=== PATIENT | male | born 1955 | race African-American/Black ===

== ENCOUNTER 2021-06-08 14:38 | Emergency (ER) | payer MEDICARE, OTHER ==
[2021-06-08 15:15] LABS: #Basophils 0.1 thou/uL (0.0-0.2); #Eosinphils 0.2 thou/uL (0.0-0.7); #Monocytes 0.6 thou/uL (0.11-0.59); #Neutrophils 1.8 thou/uL (1.40-6.50); %Basophils 1.3 % (0.0-1.0); %Eosinophils 3.4 % (0.0-10.0); %Lymphocytes 43.6 % (21.0-51.0); %Monocytes 12.1 % (0.0-10.0); %Neutrophils 39.6 % (42.0-75.0); Hemoglobin 16.7 g/dL (14.0-18.0); Mean Corpuscular HGB CONC 36.2 g/dL (32.0-36.0); Mean Corpuscular Hemoglobin 31.8 pg (27.0-31.0); Mean Corpuscular Volume 87.7 fL (78.0-98.0); Mean Platelet Volume 5.6 fL (7.4-10.4); Platelet Count 310 thou/uL (130-400); Red Blood Cell (RBC) Count 5.26 mill/uL (4.70-6.10); White Blood Cell (WBC) Count 4.6 thou/uL (4.8-10.8)
[2021-06-08 15:51] LABS: Acetaminophen Less than 6.0 mcg/mL (10.0-30.0); Alcohol 12 mg/dL (Less than 10); Salicylate Less than 8.0 mg/dL (15.0-30.0)
[2021-06-08 15:52] LABS: ALT (SGPT) 13 U/L (8-55); AST (SGOT) 17 U/L (5-34); Albumin 3.7 g/dL (3.4-4.8); Alkaline Phosphatase 66 U/L (40-110); Anion Gap 14 mmol/L (10-20); BUN (Urea Nitrogen) 14 mg/dL (8.4-25.7); Bilirubin, Total 0.4 mg/dL (0.2-1.2); Calc. Creatinine Clearance 0 mL/min (70-130); Calcium 8.6 mg/dL (7.8-10.44); Carbon Dioxide 20 mmol/L (23-31); Chloride 107 mmol/L (98-107); Globulin 3.3 g/dL (2.4-3.5); Glucose 116 mg/dL (80-115); Potassium 4.2 mmol/L (3.5-5.1); Sodium 137 mmol/L (136-145)
== END 2021-06-08 17:03 | disposition home or self-care (01) ==
LOC: ERS 14:38
DX: Z00.00 Encounter for general adult medical examination without abnormal findings (principal); I10 Essential (primary) hypertension; E78.5 Hyperlipidemia, unspecified; E78.00 Pure hypercholesterolemia, unspecified; M10.9 Gout, unspecified; F17.210 Nicotine dependence, cigarettes, uncomplicated; Z79.899 Other long term (current) drug therapy
CPT/HCPCS: 36415; 70450; 71045; 80053; 80307; 84484; 85025; 93005

== ENCOUNTER 2021-10-07 13:27 | Emergency (ER) | payer MEDICARE, OTHER ==
[2021-10-07 15:02] LABS: #Eosinphils 0.1 thou/uL (0.0-0.7); #Lymphocytes 1.6 thou/uL (1.20-3.40); #Monocytes 0.4 thou/uL (0.11-0.59); #Neutrophils 2.2 thou/uL (1.40-6.50); %Basophils 0.4 % (0.0-1.0); %Eosinophils 2.8 % (0.0-10.0); %Lymphocytes 35.6 % (21.0-51.0); %Monocytes 10.2 % (0.0-10.0); Hemoglobin 17.5 g/dL (14.0-18.0); Mean Corpuscular HGB CONC 34.8 g/dL (32.0-36.0); Mean Corpuscular Hemoglobin 30.8 pg (27.0-31.0); Mean Corpuscular Volume 88.5 fL (78.0-98.0); Mean Platelet Volume 6.3 fL (7.4-10.4); Platelet Count 325 thou/uL (130-400); RBC Distribution Width 12.8 % (11.5-14.5); Red Blood Cell (RBC) Count 5.69 mill/uL (4.70-6.10); White Blood Cell (WBC) Count 4.4 thou/uL (4.8-10.8)
[2021-10-07 15:17] LABS: Acetaminophen Less than 10.0 mcg/mL (10.0-30.0); Alcohol Less than 10 mg/dL (Less than 10); Salicylate Less than 8.0 mg/dL (15.0-30.0)
[2021-10-07 15:24] LABS: ALT (SGPT) 14 U/L (8-55); AST (SGOT) 22 U/L (5-34); Albumin 4.1 g/dL (3.4-4.8); Alkaline Phosphatase 85 U/L (40-110); Anion Gap 12 mmol/L (10-20); BUN (Urea Nitrogen) 13 mg/dL (8.4-25.7); Bilirubin, Total 0.6 mg/dL (0.2-1.2); Calc. Creatinine Clearance 0 mL/min (70-130); Calcium 9.1 mg/dL (7.8-10.44); Carbon Dioxide 23 mmol/L (23-31); Chloride 107 mmol/L (98-107); Globulin 3.7 g/dL (2.4-3.5); Glucose 148 mg/dL (80-115); Magnesium 2.4 mg/dL (1.6-2.6); Protein, Total 7.8 g/dL (5.8-8.1); Sodium 138 mmol/L (136-145)
[2021-10-07] MEDS ORDERED: Calcium Chloride 1 GM/10 ML Abboject SYRINGE ONE (16:35)
[2021-10-07] MEDS ORDERED: Atropine Sulfate 1 mg/10 ml Syringe ONE (16:35)
[2021-10-07] MEDS ORDERED: Lidocaine 1% PF 10 ML AMP ONE (17:56)
[2021-10-07] MEDS ORDERED: Midazolam HCl 2 mg/2 ml Vial ONE (17:57)
[2021-10-07 18:09] LABS: Lactic Acid 3.4 mmol/L (0.5-2.2)
== END 2021-10-07 19:15 | disposition short-term general hospital (02) ==
LOC: ERS 13:27
DX: T44.7X2A Poisoning by beta-adrenoreceptor antagonists, intentional self-harm, initial encounter (principal); T42.8X2A Poisoning by antiparkinsonism drugs and other central muscle-tone depressants, intentional self-harm, initial encounter; R41.82 Altered mental status, unspecified; I10 Essential (primary) hypertension; E78.5 Hyperlipidemia, unspecified; E78.00 Pure hypercholesterolemia, unspecified; M10.9 Gout, unspecified; F17.210 Nicotine dependence, cigarettes, uncomplicated; Z79.899 Other long term (current) drug therapy
CPT/HCPCS: 36415; 71045; 80053; 80307; 83605; 83735; 84443; 84484; 85025; 93005; J0461; J2001; J2250

== ENCOUNTER 2023-05-10 21:02 | Inpatient (IN) | payer OTHER ==
[~2023-05-10 21:02] MED LIST: Iopamidol 370 76% 100 ML VIAL ONE
[2023-05-10] MEDS ORDERED: LORazepam 2 MG/ML SYR.(CARPUJECT) ONE (21:12)
[2023-05-10] MEDS ORDERED: Morphine 4 MG/ML VIAL ONE ×2 (21:12→21:34)
[2023-05-10] MEDS ORDERED: Ondansetron PF 4 MG/2 ML Vial ONE (21:12)
[2023-05-10] MEDS ORDERED: Nitroglycerin 50 MG/250 ML BOT ONE (21:27)
[2023-05-10] MEDS ORDERED: Heparin 25,000 UNITS/D5W 500 ml bag ONE (21:27)
[2023-05-10] MEDS ORDERED: Heparin 10,000 UNITS/ 10 ML VIAL ONE ×2 (21:27→21:44)
[2023-05-10 21:32] LABS: #Basophils 0.1 thou/uL (0.0-0.2); #Eosinphils 0.1 thou/uL (0.0-0.7); #Neutrophils 2.6 thou/uL (1.40-6.50); %Basophils 0.8 % (0.0-1.0); %Eosinophils 1.1 % (0.0-10.0); %Lymphocytes 47.8 % (21.0-51.0); %Monocytes 13.1 % (0.0-10.0); %Neutrophils 36.5 % (42.0-75.0); Hematocrit 48.4 % (42.0-52.0); Hemoglobin 17.5 g/dL (14.0-18.0); Mean Corpuscular HGB CONC 36.2 g/dL (32.0-36.0); Mean Corpuscular Hemoglobin 30.6 pg (27.0-31.0); Mean Corpuscular Volume 84.6 fl (78.0-98.0); Mean Platelet Volume 8.1 fL (7.4-10.4); Platelet Count 267 10x3/uL (130-400); Red Blood Cell (RBC) Count 5.72 mill/uL (4.70-6.10); White Blood Cell (WBC) Count 7.2 10x3/uL (4.8-10.8)
[2023-05-10] MEDS ORDERED: Nitroglycerin 50 MG/250 ML BOT 0 ML ONE (21:44)
[2023-05-10] MEDS ORDERED: Lidocaine 1% (PF) 30 ML VIAL ONE (21:47)
[2023-05-10 21:52] LABS: Prothrombin Time 13.4 sec (12.0-14.7)
[2023-05-10 21:59] LABS: ALT (SGPT) 14 U/L (8-55); AST (SGOT) 19 U/L (5-34); Alkaline Phosphatase 70 U/L (40-110); Anion Gap 15 mmol/L (10-20); BUN (Urea Nitrogen) 7 mg/dL (8.4-25.7); Bilirubin, Total 0.5 mg/dL (0.2-1.2); Calc. Creatinine Clearance 0 mL/min (70-130); Calcium 9.1 mg/dL (7.8-10.44); Carbon Dioxide 23 mmol/L (23-31); Chloride 103 mmol/L (98-107); Estimated GFR 77; Globulin 3.2 g/dL (2.4-3.5); Glucose 138 mg/dL (80-115); Potassium 3.9 mmol/L (3.5-5.1); Protein, Total 7.2 g/dL (5.8-8.1); Sodium 137 mmol/L (136-145)
[2023-05-10 22:01] LABS: Acetaminophen Less than 10 mcg/mL (10.0-30.0); Alcohol Less than 10.0 mg/dL (Less than 10); Lipase 56 U/L (8-78); Magnesium 2.1 mg/dL (1.6-2.6); Salicylate Less than 8.0 mg/dL (15.0-30.0)
[2023-05-10] MEDS ORDERED: fentaNYL 50 mcg/mL 1 mL Vial ONE (22:18)
[2023-05-10] MEDS ORDERED: Midazolam HCl 2 mg/2 ml Vial ONE ×2 (22:18→22:34)
[2023-05-10] MEDS ORDERED: Milk Of Magnesia 30 ML UDCUP PO PRN (22:55)
[2023-05-10] MEDS ORDERED: Sodium Chloride 0.9% 1,000 ML IV SCH (23:00)
[2023-05-10] MEDS ORDERED: Morphine 2 MG/ML VIAL SLOW IVP SCH (23:45)
[2023-05-10] MEDS: Acetaminophen/Codeine 30-300mg Tablet PO PRN (23:54)
[2023-05-10] MEDS ORDERED: Electrolyte Replacement Protocol 1 EACH FS SCH (23:55)
[2023-05-10 23:58] VITALS: BMI 32.5
[2023-05-11 00:34] LABS: Troponin I 3.603 ng/mL (< 0.028)
[2023-05-11] MEDS: Nicotine 14 MG PATCH TD SCH (00:38)
[2023-05-11 03:10] LABS: Amphetamine Not Detected (NotDetected); Barbiturates Screen Not Detected (NotDetected); Benzodiazepine Screen Detected (NotDetected); Cocaine Metabolite Screen Not Detected (NotDetected); Methadone Not Detected (NotDetected); Methamphetamine Not Detected (NotDetected); Opiate Screen Detected (NotDetected); Oxycodone Screen Not Detected (NotDetected); Phencyclidine (PCP) Not Detected (NotDetected); THC/Cannabinoid Screen Detected (NotDetected); Tricyclic Screen Not Detected (NotDetected)
[2023-05-11] MEDS: Acetaminophen/Codeine 30-300mg Tablet PO PRN ×2 (04:23→09:03)
[2023-05-11] MEDS: Mag-Al 1200 mg/1200 mg/30 ML UDCUP PO PRN ×2 (04:24→08:20)
[2023-05-11 05:11] LABS: #Basophils 0.1 thou/uL (0.0-0.2); #Neutrophils 4.3 thou/uL (1.40-6.50); %Basophils 0.7 % (0.0-1.0); %Eosinophils 0.4 % (0.0-10.0); %Lymphocytes 27.8 % (21.0-51.0); %Monocytes 13.5 % (0.0-10.0); %Neutrophils 57.1 % (42.0-75.0); Hematocrit 46.8 % (42.0-52.0); Hemoglobin 16.8 g/dL (14.0-18.0); Mean Corpuscular HGB CONC 35.9 g/dL (32.0-36.0); Mean Corpuscular Hemoglobin 30.5 pg (27.0-31.0); Mean Corpuscular Volume 84.9 fl (78.0-98.0); Mean Platelet Volume 7.9 fL (7.4-10.4); Platelet Count 241 10x3/uL (130-400); RBC Distribution Width 13.9 % (11.5-14.5); Red Blood Cell (RBC) Count 5.51 mill/uL (4.70-6.10); White Blood Cell (WBC) Count 7.6 10x3/uL (4.8-10.8)
[2023-05-11 05:25] LABS: Hemoglobin A1c 6.6 % (4.0-6.0)
[2023-05-11 05:38] LABS: ALT (SGPT) 42 U/L (8-55); AST (SGOT) 333 U/L (5-34); Albumin 3.3 g/dL (3.4-4.8); Alkaline Phosphatase 70 U/L (40-110); Anion Gap 13 mmol/L (10-20); BUN (Urea Nitrogen) 7 mg/dL (8.4-25.7); Bilirubin, Total 0.7 mg/dL (0.2-1.2); Calc. Creatinine Clearance 132 mL/min (70-130); Calcium 8.2 mg/dL (7.8-10.44); Carbon Dioxide 22 mmol/L (23-31); Cardiac Risk 3.3 (Less than 4.5); Chloride 107 mmol/L (98-107); Cholesterol 161 mg/dl (< 200 Desired); Estimated GFR 95; Globulin 3.3 g/dL (2.4-3.5); Glucose 138 mg/dL (80-115); HDL Cholesterol 49 mg/dL (>60 Neg Risk); LDL Cholesterol, Calculated 63 mg/dL; Magnesium 1.8 mg/dL (1.6-2.6); Potassium 4.5 mmol/L (3.5-5.1); Protein, Total 6.6 g/dL (5.8-8.1); Sodium 137 mmol/L (136-145); Triglycerides 246 mg/dL (Less than 150)
[2023-05-11] MEDS ORDERED: Magnesium 2 GM/50 ML(in water) 2 GM in Premix 1 BAG IVPB SCH (08:00)
[2023-05-11] MEDS: Folic Acid 1 MG TAB PO SCH (09:57)
[2023-05-11] MEDS: Multivit, Therapeutic 1 TAB PO SCH (09:57)
[2023-05-11] MEDS: Aspirin Chewable 81 MG TAB PO SCH (09:57)
[2023-05-11] MEDS: Thiamine 100 MG TAB PO SCH (09:57)
[2023-05-11] MEDS: Clopidogrel Bisulfate 75 MG TAB PO SCH (09:58)
[2023-05-11] MEDS ORDERED: Lidocaine 1% (PF) 30 ML VIAL ONE (12:10)
[2023-05-11] MEDS ORDERED: Adenosine 6 MG/2 ML VIAL ONE (12:10)
[2023-05-11] MEDS ORDERED: Nitroglycerin 50 MG/250 ML BOT 0 ML ONE (12:10)
[2023-05-11] MEDS ORDERED: Heparin 10,000 UNITS/ 10 ML VIAL ONE (12:10)
[2023-05-11] MEDS ORDERED: Verapamil 5 MG/2 ML VIAL ONE (12:10)
[2023-05-11] MEDS ORDERED: Propofol 1,000 MG/100 ML VIAL IV ONE (12:49)
[2023-05-11] MEDS ORDERED: Furosemide 40 MG/4 ML VIAL ONE (12:51)
[2023-05-11] MEDS ORDERED: Labetalol HCl 100 MG/20 ML VIAL ONE (12:57)
[2023-05-11] MEDS ORDERED: Succinylcholine 200 MG/10 ml SYRINGE FS ONE (12:57)
[2023-05-11] MEDS ORDERED: Rocuronium Bromide 10 MG/ML (10ML VIAL) ONE (12:57)
[2023-05-11] MEDS ORDERED: Albuterol HFA (OR) 200 PUFF INH ONE ×2 (12:57→13:03)
[2023-05-11] MEDS ORDERED: Nitroglycerin 50 MG/250 ML BOT 250 ML ONE (13:15)
[2023-05-11] MEDS ORDERED: fentaNYL PF 100 MCG/2 ML SYRINGE ONE (13:32)
[2023-05-11] MEDS ORDERED: Morphine 4 MG/ML VIAL ONE (13:33)
[2023-05-11] MEDS ORDERED: Ventilator Sedation Protocol FS PRN (14:15)
[2023-05-11] MEDS ORDERED: Lorazepam 2 MG/ML VIAL ONE (14:18)
[2023-05-11] MEDS: Lorazepam 2 MG/ML VIAL SLOW IVP PRN ×3 (14:20→19:40)
[2023-05-11 14:22] LABS: Actual Bicarbonate (HCO3a) 19.2 mEq/L (22-28); Base Excess (BEa) -6.9 mEq/L (-2.0 to +3.0); CO2 Tension 40.5 mmHg (35.0-45.0); Calcium, Ionized (arterial) 1.12 mmol/L (1.12-1.30); Carboxyhemoglobin (COHb) 1.6 gm% (0.0-3.0); Hematocrit-ABG 58 % (42.0-52.0); Hemoglobin (Hb) 19.6 g/dL (14.0-18.0); Potassium - ABG Lab 5.36 mmol/L (3.70-5.30); pH, Arterial 7.293 (7.35-7.45)
[2023-05-11 14:24] LABS: Puncture Site Arterial Line
[2023-05-11] MEDS ORDERED: DISCONTINUE PREVIOUS NARCOTIC PAIN MEDICATIONS AND BENZODIAZEPINES FS SCH (14:30)
[2023-05-11] MEDS ORDERED: Fentanyl BOLUS 250 ML IVPB PRN (14:30)
[2023-05-11] MEDS ORDERED: niCARdipine 50 MG, Admixture Fee 1 EACH in Sodium Chloride 0.9% 250 ML 230 ML IV SCH (14:30)
[2023-05-11] MEDS ORDERED: niCARdipine 40MG In NaCl 40 MG/200 ML BAG IVPB SCH (14:30)
[2023-05-11] MEDS ORDERED: Propofol BOLUS 1,000 MG/100 ML VIAL IV PRN (14:30)
[2023-05-11] MEDS ORDERED: Fentanyl CADD 100 ML IV SCH (14:30)
[2023-05-11] MEDS ORDERED: Furosemide 40 MG/4 ML VIAL SLOW IVP SCH (14:30)
[2023-05-11] MEDS: Propofol 1,000 MG/100 ML VIAL IV PRN (18:27)
[2023-05-11] MEDS: Acetaminophen 650 MG/20.3 ML UDCUP PO PRN (22:11)
[2023-05-12] MEDS: Propofol 1,000 MG/100 ML VIAL IV PRN ×2 (01:03→06:32)
[2023-05-12] MEDS: Nicotine 14 MG PATCH TD SCH (01:04)
[2023-05-12] MEDS: Lorazepam 2 MG/ML VIAL SLOW IVP PRN (01:08)
[2023-05-12] MEDS: Morphine 2 MG/ML VIAL SLOW IVP PRN ×2 (03:25→05:09)
[2023-05-12] MEDS: Aspirin Chewable 81 MG TAB PO SCH (08:29)
[2023-05-12] MEDS: Carvedilol 3.125 MG TAB PO SCH ×3 (08:30→21:09)
[2023-05-12] MEDS: Clopidogrel Bisulfate 75 MG TAB PO SCH (08:30)
[2023-05-12] MEDS: Thiamine 100 MG TAB PO SCH (08:30)
[2023-05-12] MEDS: Multivit, Therapeutic 1 TAB PO SCH (08:30)
[2023-05-12] MEDS: Folic Acid 1 MG TAB PO SCH (08:30)
[2023-05-12 09:30] LABS: #Basophils 0.1 thou/uL (0.0-0.2); #Monocytes 1.2 thou/uL (0.11-0.59); #Neutrophils 6.8 thou/uL (1.40-6.50); %Basophils 0.5 % (0.0-1.0); %Eosinophils 0.3 % (0.0-10.0); %Lymphocytes 15.9 % (21.0-51.0); %Monocytes 12.7 % (0.0-10.0); %Neutrophils 70.3 % (42.0-75.0); Hematocrit 48.2 % (42.0-52.0); Hemoglobin 16.7 g/dL (14.0-18.0); Mean Corpuscular HGB CONC 34.6 g/dL (32.0-36.0); Mean Corpuscular Hemoglobin 30.6 pg (27.0-31.0); Mean Corpuscular Volume 88.4 fl (78.0-98.0); Mean Platelet Volume 8.2 fL (7.4-10.4); Platelet Count 199 10x3/uL (130-400); RBC Distribution Width 14.7 % (11.5-14.5); Red Blood Cell (RBC) Count 5.45 mill/uL (4.70-6.10); White Blood Cell (WBC) Count 9.7 10x3/uL (4.8-10.8)
[2023-05-12 09:54] LABS: Anion Gap 13 mmol/L (10-20); BUN (Urea Nitrogen) 8 mg/dL (8.4-25.7); Calc. Creatinine Clearance 118 mL/min (70-130); Calcium 8.2 mg/dL (7.8-10.44); Carbon Dioxide 24 mmol/L (23-31); Chloride 105 mmol/L (98-107); Estimated GFR 89; Glucose 124 mg/dL (80-115); Magnesium 2.2 mg/dL (1.6-2.6); Sodium 138 mmol/L (136-145)
[2023-05-12] MEDS: Dexmedetomidine 400 MCG, Admixture Fee 1 EACH in Sodium Chloride 0.9% 96 ML IVPB SCH ×2 (10:18→21:15)
[2023-05-13] MEDS: Nicotine 14 MG PATCH TD SCH (00:35)
[2023-05-13 04:08] LABS: #Eosinphils 0.1 thou/uL (0.0-0.7); #Neutrophils 5.8 thou/uL (1.40-6.50); %Basophils 0.5 % (0.0-1.0); %Eosinophils 0.9 % (0.0-10.0); %Lymphocytes 20.5 % (21.0-51.0); %Monocytes 11.4 % (0.0-10.0); %Neutrophils 66.2 % (42.0-75.0); Hematocrit 44.9 % (42.0-52.0); Hemoglobin 15.8 g/dL (14.0-18.0); Mean Corpuscular HGB CONC 35.2 g/dL (32.0-36.0); Mean Corpuscular Hemoglobin 30.4 pg (27.0-31.0); Mean Corpuscular Volume 86.5 fl (78.0-98.0); Mean Platelet Volume 8.3 fL (7.4-10.4); Platelet Count 205 10x3/uL (130-400); RBC Distribution Width 14.3 % (11.5-14.5); Red Blood Cell (RBC) Count 5.19 mill/uL (4.70-6.10); White Blood Cell (WBC) Count 8.7 10x3/uL (4.8-10.8)
[2023-05-13 04:28] LABS: Anion Gap 13 mmol/L (10-20); BUN (Urea Nitrogen) 12 mg/dL (8.4-25.7); Calc. Creatinine Clearance 123 mL/min (70-130); Calcium 8.4 mg/dL (7.8-10.44); Carbon Dioxide 21 mmol/L (23-31); Chloride 106 mmol/L (98-107); Estimated GFR 94; Glucose 121 mg/dL (80-115); Potassium 4.2 mmol/L (3.5-5.1); Sodium 136 mmol/L (136-145)
[2023-05-13] MEDS: Folic Acid 1 MG TAB PO SCH (07:46)
[2023-05-13] MEDS: Clopidogrel Bisulfate 75 MG TAB PO SCH (07:46)
[2023-05-13] MEDS: Aspirin Chewable 81 MG TAB PO SCH (07:46)
[2023-05-13] MEDS: Carvedilol 3.125 MG TAB PO SCH ×2 (07:46→20:32)
[2023-05-13] MEDS: Multivit, Therapeutic 1 TAB PO SCH (07:46)
[2023-05-13] MEDS: Thiamine 100 MG TAB PO SCH (07:46)
[2023-05-13] MEDS: Acetaminophen 650 MG/20.3 ML UDCUP PO PRN ×2 (13:46→20:33)
[2023-05-14] MEDS: Acetaminophen 650 MG/20.3 ML UDCUP PO PRN (02:21)
[2023-05-14] MEDS: Nicotine 14 MG PATCH TD SCH (02:21)
[2023-05-14 04:52] LABS: #Eosinphils 0.1 thou/uL (0.0-0.7); #Neutrophils 5.7 thou/uL (1.40-6.50); %Basophils 0.4 % (0.0-1.0); %Eosinophils 0.9 % (0.0-10.0); %Lymphocytes 19.5 % (21.0-51.0); %Monocytes 11.9 % (0.0-10.0); %Neutrophils 66.8 % (42.0-75.0); Hematocrit 44.8 % (42.0-52.0); Hemoglobin 15.9 g/dL (14.0-18.0); Mean Corpuscular HGB CONC 35.5 g/dL (32.0-36.0); Mean Corpuscular Hemoglobin 30.2 pg (27.0-31.0); Mean Platelet Volume 8.7 fL (7.4-10.4); Platelet Count 224 10x3/uL (130-400); RBC Distribution Width 13.8 % (11.5-14.5); Red Blood Cell (RBC) Count 5.27 mill/uL (4.70-6.10); White Blood Cell (WBC) Count 8.5 10x3/uL (4.8-10.8)
[2023-05-14 05:13] LABS: Anion Gap 14 mmol/L (10-20); BUN (Urea Nitrogen) 13 mg/dL (8.4-25.7); Calc. Creatinine Clearance 106 mL/min (70-130); Calcium 8.6 mg/dL (7.8-10.44); Carbon Dioxide 21 mmol/L (23-31); Chloride 108 mmol/L (98-107); Estimated GFR 78; Glucose 133 mg/dL (80-115); Potassium 3.6 mmol/L (3.5-5.1); Sodium 139 mmol/L (136-145)
[2023-05-14] MEDS: Folic Acid 1 MG TAB PO SCH (09:11)
[2023-05-14] MEDS: Thiamine 100 MG TAB PO SCH (09:11)
[2023-05-14] MEDS: Aspirin Chewable 81 MG TAB PO SCH (09:11)
[2023-05-14] MEDS: Multivit, Therapeutic 1 TAB PO SCH (09:11)
[2023-05-14] MEDS: Clopidogrel Bisulfate 75 MG TAB PO SCH (09:12)
[2023-05-14] MEDS: Carvedilol 3.125 MG TAB PO SCH (09:14)
[2023-05-14 11:44] VITALS: TEMP 98.6
[2023-05-14 13:03] VITALS: BP 126/74
[2023-05-14] MEDS ORDERED: Atorvastatin Calcium 20 MG TAB PO SCH (21:00)
[2023-05-15] MEDS ORDERED: DULoxetine 60 MG CAP PO SCH (09:00)
[2023-05-15] MEDS ORDERED: Furosemide 20 MG TAB PO SCH (09:00)
== END 2023-05-14 15:30 | disposition home or self-care (01) | DRG 280 ==
LOC: ERS 21:02 → CCL 21:57 → CCU 23:00 → 2NO 05-13 14:22
PROVIDERS: ADMIT Internal Medicine Cardiovascular Disease; ATTEND Internal Medicine Cardiovascular Disease
PROC: 4A023N7 Measurement of Cardiac Sampling and Pressure, Left Heart, Percutaneous Approach (ICD-10-PCS; principal; 2023-05-10)
PROC: B2111ZZ Fluoroscopy of Multiple Coronary Arteries using Low Osmolar Contrast (ICD-10-PCS; 2023-05-10)
PROC: B2151ZZ Fluoroscopy of Left Heart using Low Osmolar Contrast (ICD-10-PCS; 2023-05-10)
PROC: 4A023N7 Measurement of Cardiac Sampling and Pressure, Left Heart, Percutaneous Approach (ICD-10-PCS; 2023-05-11)
PROC: 5A1935Z Respiratory Ventilation, Less than 24 Consecutive Hours (ICD-10-PCS; 2023-05-11)
PROC: 0BH17EZ Insertion of Endotracheal Airway into Trachea, Via Natural or Artificial Opening (ICD-10-PCS; 2023-05-11)
PROC: 4A033R1 Measurement of Arterial Saturation, Peripheral, Percutaneous Approach (ICD-10-PCS; 2023-05-11)
DX: I21.09 ST elevation (STEMI) myocardial infarction involving other coronary artery of anterior wall (principal); J96.01 Acute respiratory failure with hypoxia; I42.9 Cardiomyopathy, unspecified; E78.00 Pure hypercholesterolemia, unspecified; I10 Essential (primary) hypertension; M10.9 Gout, unspecified; F32.A Depression, unspecified; F17.210 Nicotine dependence, cigarettes, uncomplicated; F12.129 Cannabis abuse with intoxication, unspecified; I25.10 Atherosclerotic heart disease of native coronary artery without angina pectoris; F10.10 Alcohol abuse, uncomplicated; F14.10 Cocaine abuse, uncomplicated; Z98.890 Other specified postprocedural states
CPT/HCPCS: 36415; 71045; 80048; 80053; 80061; 80306; 80307; 82805; 83036; 83690; 83735; 83880; 84484; 85025; 85347; 85610; 85730; 86850; 86900; 86901; 93005; 93010; 93306; 93458; 93798; 94002; 94003; 96365; 96374; 96375; 99152; 99153; C1760; C1769; C1887; C1894; J0153; J1644; J1650; J1940; J2001; J2060; J2250; J2270; J2272; J2405; J2704; J3010; J3475; J3490; J7050; Q9967

== ENCOUNTER 2023-06-11 14:48 | Observation (INO) | payer OTHER ==
[2023-06-11] MEDS ORDERED: Cefepime 2 GM VIAL ONE (15:24)
[2023-06-11] MEDS ORDERED: Sodium Chloride 0.9% 0 ML ONE (15:24)
[2023-06-11] MEDS ORDERED: Sodium Chloride 0.9% 100 ML ONE (15:25)
[2023-06-11 15:36] LABS: #Eosinphils 0.1 thou/uL (0.0-0.7); #Monocytes 0.6 thou/uL (0.11-0.59); #Neutrophils 7.6 thou/uL (1.40-6.50); %Basophils 0.4 % (0.0-1.0); %Eosinophils 0.5 % (0.0-10.0); %Lymphocytes 16.3 % (21.0-51.0); %Monocytes 5.6 % (0.0-10.0); %Neutrophils 75.1 % (42.0-75.0); Hematocrit 38.7 % (42.0-52.0); Hemoglobin 13.1 g/dL (14.0-18.0); Mean Corpuscular HGB CONC 33.9 g/dL (32.0-36.0); Mean Corpuscular Volume 88.6 fl (78.0-98.0); Mean Platelet Volume 8.6 fL (7.4-10.4); Platelet Count 621 10x3/uL (130-400); RBC Distribution Width 13.8 % (11.5-14.5); Red Blood Cell (RBC) Count 4.37 mill/uL (4.70-6.10); White Blood Cell (WBC) Count 10.2 10x3/uL (4.8-10.8)
[2023-06-11] MEDS ORDERED: Vancomycin 1 GM/200 ML (FROZEN) BAG ONE (16:22)
[2023-06-11 16:25] LABS: Troponin I 0.558 ng/mL (< 0.028)
[2023-06-11 16:30] LABS: SARS-CoV-2 NAA Rapid Test Not Detected (NotDetected)
[2023-06-11 16:58] LABS: Actual Bicarbonate (HCO3a) 18.2 mEq/L (22-28); Analyzer IN Cardio ER; Base Excess (BEa) -2.5 mEq/L (-2.0 to +3.0); Calcium, Ionized (arterial) 1.11 mmol/L (1.12-1.30); Carboxyhemoglobin (COHb) 0.4 gm% (0.0-3.0); Hematocrit-ABG 38 % (42.0-52.0); Hemoglobin (Hb) 12.9 g/dL (14.0-18.0); O2 Tension (PaO2), arterial 64.3 mmHg (> 80.0); Potassium - ABG Lab 4.55 mmol/L (3.70-5.30); pH, Arterial 7.537 (7.35-7.45)
[2023-06-11 17:00] LABS: ALV-art Gradient 58.055 mmHg (0-20); CO2 Tension 21.9 mmHg (35.0-45.0); Puncture Site LBA
[2023-06-11 17:19] LABS: ALT (SGPT) 14 U/L (8-55); AST (SGOT) 23 U/L (5-34); Albumin 3.8 g/dL (3.4-4.8); Alkaline Phosphatase 86 U/L (40-110); Anion Gap 20 mmol/L (10-20); BUN (Urea Nitrogen) 39 mg/dL (8.4-25.7); Bilirubin, Total 1.4 mg/dL (0.2-1.2); Calc. Creatinine Clearance 0 mL/min (70-130); Calcium 9.4 mg/dL (7.8-10.44); Carbon Dioxide 17 mmol/L (23-31); Chloride 102 mmol/L (98-107); Estimated GFR 38; Globulin 4.5 g/dL (2.4-3.5); Glucose 135 mg/dL (80-115); Lipase 36 U/L (8-78); Magnesium 2.8 mg/dL (1.6-2.6); Potassium 5.2 mmol/L (3.5-5.1); Protein, Total 8.3 g/dL (5.8-8.1); Sodium 134 mmol/L (136-145)
[2023-06-11] MEDS ORDERED: HYDROcodone/Acetaminophen 5/325 mg Tablet PO PRN (18:23)
[2023-06-11] MEDS ORDERED: Senokot S 8.6-50 MG TAB PO PRN (18:23)
[2023-06-11] MEDS ORDERED: Ondansetron PF 4 MG/2 ML Vial IVP PRN (18:24)
[2023-06-11] MEDS ORDERED: Acetaminophen 325 MG TAB PO PRN (18:24)
[2023-06-11] MEDS ORDERED: Pharmacy to Dose : VANC/ABX'S IVPB PRN (18:28)
[2023-06-11] MEDS ORDERED: Sodium Polystyrene Sulfonate 15 GM (60 mL) BOT PO SCH (18:30)
[2023-06-11] MEDS ORDERED: Lactated Ringer's 1,000 ML IV SCH (18:30)
[2023-06-11] MEDS ORDERED: Vancomycin HCl 500 MG in Sodium Chloride 0.9% 100 ML IVPB SCH (18:30)
[2023-06-11 19:31] LABS: Bacteria/HPF None Seen HPF (None Seen); Bilirubin Negative (Negative); Blood, Urine Negative (Negative); CAUTI Indications for Culture Dysuria,urgency,freq; Clarity Turbid (Clear); Glucose, Urine (Dipstick) Normal (Negative); Ketone, Urine Negative (Negative); Leukocyte Negative Leu/uL (Negative); Nitrite Negative (Negative); Protein, Urine (Dipstick) 20 mg/dL (Neg-Trace); RBC/HPF 0-3 HPF (0-3); Specific Gravity, Urine 1.015 (1.002-1.036); Squamous Epithelial 0-3 HPF (0-3); WBC/HPF 0-3 HPF (0-3)
[2023-06-11 19:35] LABS: Urine Culture Reflex No No
[2023-06-11 20:48] VITALS: BMI 28.0
[2023-06-11 20:58] LABS: Troponin I 0.463 ng/mL (< 0.028)
[2023-06-11] MEDS ORDERED: Vancomycin 1 GM in Premix 1 BAG IVPB SCH (21:00)
[2023-06-11] MEDS ORDERED: Atorvastatin Calcium 40 MG TAB PO SCH (21:00)
[2023-06-11] MEDS: Heparin 5,000 UNITS/ML VIAL SC SCH (22:10)
[2023-06-11] MEDS: Famotidine 20 MG TAB PO SCH (22:11)
[2023-06-12 01:56] LABS: Troponin I 0.464 ng/mL (< 0.028)
[2023-06-12] MEDS ORDERED: Cefepime 1 GM in Sodium Chloride 0.9% 100 ML IVPB SCH (03:00)
[2023-06-12 06:15] LABS: #Basophils 0.1 thou/uL (0.0-0.2); #Eosinphils 0.1 thou/uL (0.0-0.7); %Basophils 0.7 % (0.0-1.0); %Eosinophils 0.7 % (0.0-10.0); %Lymphocytes 17.7 % (21.0-51.0); %Monocytes 9.9 % (0.0-10.0); %Neutrophils 69.2 % (42.0-75.0); Hematocrit 35.5 % (42.0-52.0); Hemoglobin 11.9 g/dL (14.0-18.0); Mean Corpuscular HGB CONC 33.5 g/dL (32.0-36.0); Mean Corpuscular Hemoglobin 29.1 pg (27.0-31.0); Mean Corpuscular Volume 86.8 fl (78.0-98.0); Mean Platelet Volume 8.3 fL (7.4-10.4); Platelet Count 582 10x3/uL (130-400); RBC Distribution Width 13.2 % (11.5-14.5); Red Blood Cell (RBC) Count 4.09 mill/uL (4.70-6.10); White Blood Cell (WBC) Count 10.1 10x3/uL (4.8-10.8)
[2023-06-12 06:40] LABS: Anion Gap 15 mmol/L (10-20); BUN (Urea Nitrogen) 32 mg/dL (8.4-25.7); Calc. Creatinine Clearance 70 mL/min (70-130); Calcium 8.7 mg/dL (7.8-10.44); Carbon Dioxide 18 mmol/L (23-31); Chloride 103 mmol/L (98-107); Estimated GFR 56; Glucose 130 mg/dL (80-115); Potassium 4.2 mmol/L (3.5-5.1); Sodium 132 mmol/L (136-145)
[2023-06-12] MEDS: Famotidine 20 MG TAB PO SCH (08:38)
[2023-06-12] MEDS: Heparin 5,000 UNITS/ML VIAL SC SCH (08:38)
[2023-06-12] MEDS ORDERED: DULoxetine 60 MG CAP PO SCH (09:00)
[2023-06-12] MEDS ORDERED: Aspirin 325 MG TAB PO SCH (09:00)
[2023-06-12] MEDS ORDERED: Thiamine 100 MG TAB PO SCH (09:00)
[2023-06-12 11:22] LABS: Amphetamine Not Detected (NotDetected); Barbiturates Screen Not Detected (NotDetected); Benzodiazepine Screen Not Detected (NotDetected); Cocaine Metabolite Screen Not Detected (NotDetected); Methadone Not Detected (NotDetected); Methamphetamine Not Detected (NotDetected); Opiate Screen Detected (NotDetected); Oxycodone Screen Not Detected (NotDetected); Phencyclidine (PCP) Not Detected (NotDetected); THC/Cannabinoid Screen Detected (NotDetected); Tricyclic Screen Not Detected (NotDetected)
[2023-06-12 11:37] VITALS: TEMP 98.4
[2023-06-12 13:57] VITALS: BP 106/63
[2023-06-12] MEDS ORDERED: Vancomycin (BATCH) 1.5 GM in Premix 1 BAG IVPB SCH (18:00)
== END 2023-06-12 14:55 | disposition home or self-care (01) ==
LOC: ERS 14:48 → 2SW 18:31
PROVIDERS: ADMIT Internal Medicine; ATTEND Internal Medicine
DX: R42 Dizziness and giddiness (principal); N17.9 Acute kidney failure, unspecified; I25.10 Atherosclerotic heart disease of native coronary artery without angina pectoris; E78.5 Hyperlipidemia, unspecified; H54.7 Unspecified visual loss; E87.5 Hyperkalemia; E87.20 Acidosis, unspecified; F12.90 Cannabis use, unspecified, uncomplicated; M10.9 Gout, unspecified; I25.2 Old myocardial infarction; Z79.899 Other long term (current) drug therapy; Z79.82 Long term (current) use of aspirin; Z95.5 Presence of coronary angioplasty implant and graft; Z87.891 Personal history of nicotine dependence
CPT/HCPCS: 0240U; 36600; 71045; 80048; 80053; 80306; 81001; 82805; 82962; 83605; 83690; 83735; 83880; 84484 ×3; 85025 ×2; 87040; 87086; 93005; 94760; 96361; 96365; 96367; 97116; 99285; J3370; 36415; 36416; 96366; 96372; 96376; G0378; J0692; J1644; J3490; J7120

== ENCOUNTER 2023-07-31 01:40 | Observation (INO) | payer OTHER, MEDICARE ==
[2023-07-31 02:55] LABS: Hematocrit 42.2 % (42.0-52.0); Hemoglobin 14.6 g/dL (14.0-18.0); Manual Diff?? YES; Mean Corpuscular HGB CONC 34.6 g/dL (32.0-36.0); Mean Corpuscular Hemoglobin 29.1 pg (27.0-31.0); Mean Corpuscular Volume 84.1 fl (78.0-98.0); Mean Platelet Volume 7.9 fL (7.4-10.4); Platelet Count 286 10x3/uL (130-400); RBC Distribution Width 14.7 % (11.5-14.5); Red Blood Cell (RBC) Count 5.02 mill/uL (4.70-6.10)
[2023-07-31 03:07] LABS: Delete Auto Diff?? YES
[2023-07-31 03:16] LABS: ALT (SGPT) 12 U/L (8-55); AST (SGOT) 21 U/L (5-34); Alkaline Phosphatase 95 U/L (40-110); Anion Gap 17 mmol/L (10-20); BUN (Urea Nitrogen) 7 mg/dL (8.4-25.7); Bilirubin, Total 0.4 mg/dL (0.2-1.2); Calc. Creatinine Clearance 0 mL/min (70-130); Calcium 8.9 mg/dL (7.8-10.44); Carbon Dioxide 16 mmol/L (23-31); Chloride 102 mmol/L (98-107); Estimated GFR 97; Globulin 3.4 g/dL (2.4-3.5); Glucose 113 mg/dL (80-115); Protein, Total 7.4 g/dL (5.8-8.1); Sodium 131 mmol/L (136-145)
[2023-07-31 03:21] LABS: Troponin I 0.023 ng/mL (< 0.028)
[2023-07-31 03:32] LABS: Band 1 % (5-11); CellaVision Operator ID lab.sh2; Large Platelets 2.1 % (0-5); Lymphocytes 37 % (21-51); Macrocytosis SLIGHT = 6-15 cells HPF (0-5); Monocytes 12 % (0-10); Neutrophil 48 % (42-75); Platelet Adequacy Comment Platelets Normal; Polychromasia SLIGHT = 2-3 cells HPF (0-2); Smudge Cells 12.8 %; Target Cells SLIGHT = 2-5 cells HPF (0-1); Total Cell Count 94
[2023-07-31] MEDS ORDERED: Nitroglycerin 0.4 MG TAB (25 Tab Bottle) ONE (03:36)
[2023-07-31] MEDS ORDERED: Ondansetron ODT 4 MG TAB SL PRN (04:00)
[2023-07-31] MEDS ORDERED: Ondansetron PF 4 MG/2 ML Vial IVP PRN (04:00)
[2023-07-31] MEDS ORDERED: Acetaminophen 325 MG TAB PO PRN ×2 (04:00→04:10)
[2023-07-31] MEDS ORDERED: Calcium Carbonate 500 MG ChewTAB PO PRN (04:10)
[2023-07-31] MEDS ORDERED: Ondansetron ODT 4 MG TAB PO PRN (04:10)
[2023-07-31] MEDS ORDERED: Famotidine 20 MG TAB PO SCH (09:00)
[2023-07-31] MEDS ORDERED: DULoxetine 60 MG CAP PO SCH (09:00)
[2023-07-31] MEDS ORDERED: Atorvastatin Calcium 40 MG TAB PO SCH (21:00)
== END 2023-07-31 04:10 | disposition left against medical advice (07) ==
LOC: ERS 01:40 → ERHOLD 03:42
PROVIDERS: ADMIT Student in an Organized Health Care Education/Training Program; ATTEND Student in an Organized Health Care Education/Training Program
DX: R07.9 Chest pain, unspecified (principal); F14.10 Cocaine abuse, uncomplicated; H54.7 Unspecified visual loss; I25.10 Atherosclerotic heart disease of native coronary artery without angina pectoris; I10 Essential (primary) hypertension; E78.5 Hyperlipidemia, unspecified; F17.200 Nicotine dependence, unspecified, uncomplicated; Z95.5 Presence of coronary angioplasty implant and graft; Z79.899 Other long term (current) drug therapy; Z79.82 Long term (current) use of aspirin
CPT/HCPCS: 36415; 71045; 80053; 83880; 84484; 85025; 93005

== ENCOUNTER 2023-09-03 04:49 | Emergency (ER) | payer OTHER ==
[2023-09-03 06:52] LABS: #Eosinphils 0.1 thou/uL (0.0-0.7); #Monocytes 0.6 thou/uL (0.11-0.59); #Neutrophils 2.6 thou/uL (1.40-6.50); %Basophils 0.6 % (0.0-1.0); %Eosinophils 1.1 % (0.0-10.0); %Lymphocytes 38.8 % (21.0-51.0); %Monocytes 10.6 % (0.0-10.0); %Neutrophils 48.7 % (42.0-75.0); Hematocrit 47.4 % (42.0-52.0); Hemoglobin 16.1 g/dL (14.0-18.0); Mean Corpuscular Hemoglobin 27.7 pg (27.0-31.0); Mean Corpuscular Volume 81.6 fl (78.0-98.0); Mean Platelet Volume 7.9 fL (7.4-10.4); Platelet Count 356 10x3/uL (130-400); RBC Distribution Width 14.9 % (11.5-14.5); Red Blood Cell (RBC) Count 5.81 mill/uL (4.70-6.10); White Blood Cell (WBC) Count 5.4 10x3/uL (4.8-10.8)
[2023-09-03 07:06] LABS: ALT (SGPT) 10 U/L (8-55); AST (SGOT) 15 U/L (5-34); Albumin 3.7 g/dL (3.4-4.8); Alkaline Phosphatase 89 U/L (40-110); Anion Gap 14 mmol/L (10-20); BUN (Urea Nitrogen) 8 mg/dL (8.4-25.7); Bilirubin, Total 0.3 mg/dL (0.2-1.2); Calc. Creatinine Clearance 0 mL/min (70-130); Carbon Dioxide 22 mmol/L (23-31); Chloride 103 mmol/L (98-107); Estimated GFR 94; Globulin 3.6 g/dL (2.4-3.5); Glucose 95 mg/dL (80-115); Protein, Total 7.3 g/dL (5.8-8.1); Sodium 135 mmol/L (136-145)
[2023-09-03 07:10] LABS: Troponin I 0.024 ng/mL (< 0.028)
[2023-09-03 08:11] LABS: Acetaminophen Less than 10 mcg/mL (10.0-30.0); Alcohol 139.4 mg/dL (Less than 10); Salicylate Less than 8.0 mg/dL (15.0-30.0)
[2023-09-03 11:47] LABS: Acetaminophen Less than 10 mcg/mL (10.0-30.0); Alcohol 82.9 mg/dL (Less than 10); Salicylate Less than 8.0 mg/dL (15.0-30.0)
[2023-09-03] MEDS ORDERED: Acetaminophen 500 MG TAB ONE (14:16)
[2023-09-03 15:13] LABS: Amphetamine Not Detected (NotDetected); Barbiturates Screen Not Detected (NotDetected); Benzodiazepine Screen Not Detected (NotDetected); Cocaine Metabolite Screen Detected (NotDetected); Methadone Not Detected (NotDetected); Methamphetamine Not Detected (NotDetected); Opiate Screen Not Detected (NotDetected); Oxycodone Screen Not Detected (NotDetected); Phencyclidine (PCP) Not Detected (NotDetected); THC/Cannabinoid Screen Not Detected (NotDetected); Tricyclic Screen Not Detected (NotDetected)
== END 2023-09-03 16:29 ==
LOC: ERS 04:49
DX: R07.9 Chest pain, unspecified (principal); R45.851 Suicidal ideations; I10 Essential (primary) hypertension; F17.210 Nicotine dependence, cigarettes, uncomplicated
CPT/HCPCS: 36415; 71045; 80053; 80306; 80307; 84484; 85025; 93005